=== PATIENT | male | born 1960 | race Caucasian/White ===

== ENCOUNTER 2016-07-10 07:35 | Day surgery (SDC) | payer OTHER ==
--- NOTE | ~2016-07-10 | EGD ---
EGD REPORT [facility] [address] [id number] NAME: DINORAH WEST : [birth year] STATUS : REG [facility]#: [id number] AGE: 55 ADM/REG DATE : 07/10/16 MR#: [id number] REPORT SERV DATE: 07/10/16 DICTATED BY: JACKY CASSIDY DATE: 07/10/16 REPORT STATUS : Draft [facility]: [facility] DATE: 07/10/16 Endoscopy Center Patient Name: Dinorah West Date of : 1960 Attending MD: JACKY CASSIDY MD Procedure Date No Time: 07/10/2016 Procedure: Colonoscopy Indications: Screening for colorectal malignant neoplasm Referring MD: PAYAL MARSHALL Medicines: Propofol per Anesthesia Complications: No immediate complications. Procedure: Pre-Anesthesia Assessment: - ASA Grade Assessment: III - A patient with severe systemic disease. After I obtained informed consent, the scope was passed under direct vision. Throughout the procedure, the patient's blood pressure, pulse, and oxygen saturations were monitored continuously. The CF [id number] was introduced through the anus and advanced to the cecum, identified by appendiceal orifice and ileocecal valve. The colonoscopy was performed without difficulty. The patient tolerated the procedure well. The quality of the bowel preparation was good. Findings: The perianal and digital rectal examinations were normal. The colon (entire examined portion) appeared normal. A sessile polyp was found in the cecum. The polyp was 5 mm in size. The polyp was removed with a hot snare. Resection and retrieval were complete. A sessile polyp was found in the descending colon. The polyp was 4 mm in size. The polyp was removed with a cold snare. Resection and retrieval were complete. Multiple medium-mouthed diverticula were found in the recto-sigmoid colon and in the sigmoid colon. A sessile polyp was found in the recto-sigmoid colon. The polyp was 5 mm in size. The polyp was removed with a hot snare. Resection and retrieval were complete. Non-bleeding internal hemorrhoids were found during retroflexion and were mild, medium-sized and Grade I (internal hemorrhoids that do not prolapse). Impression: - The entire examined colon is normal. - One 5 mm polyp in the cecum. Resected and retrieved. - One 4 mm polyp in the descending colon. Resected and EGD REPORT [address] [place]. [address] NAME: DNIORAH WEST : 58 STATUS : REG [facility] PAT#: [id number] AGE: 55 ADM/REG DATE : 07/10/16 MR#: [id number] REPORT SERV DATE: 07/10/16 DICTATED BY: JACKY CASSIDY DATE: 07/10/16 REPORT STATUS : Draft TRANSCRIBED BY: [employer] DATE: 07/10/16 retrieved. - Diverticulosis in the recto-sigmoid colon and in the sigmoid colon. - One 5 mm polyp at the recto-sigmoid colon. Resected and retrieved. - Non-bleeding internal hemorrhoids. Recommendation: - Patient has a contact number available for emergencies. The signs and symptoms of potential delayed complications were discussed with the patient. Return to normal activities tomorrow. Written discharge instructions were provided to the patient. - Return to previous diet. - Continue present medications. - Await pathology results. - Repeat colonoscopy in 1 to 3 years` for surveillance based on pathology results. - Return to my office as previously scheduled. - Discharge patient to home. Procedure Code(s): --- Professional --- 67360, Colonoscopy, flexible, proximal to splenic flexure; with removal of tumor(s), polyp(s), or other lesion(s) by snare technique Diagnosis Code(s): --- Professional --- K64.0, First degree hemorrhoids K57.30, Diverticulosis of large intestine without perforation or abscess without bleeding D12.7, Benign neoplasm of rectosigmoid junction D12.4, Benign neoplasm of descending colon D12.0, Benign neoplasm of cecum Z12.11, Encounter for screening for malignant neoplasm of colon CPT copyright 2013 [employer]. All rights reserved. The codes documented in this report are preliminary and upon edger machine operator review may be revised to meet current compliance requirements. Jacky Cassidy MD JACKY CASSIDY MD 07/10/2016 10:21 AM This report has been signed electronically. Number of Addenda: 0 EGD REPORT [facility] [address] [id number] NAME: DINORAH WEST : 58 STATUS : REG [facility] [place] PAT#: [id number] AGE: 55 ADM/REG DATE : 07/10/16 MR#: [id number] REPORT SERV DATE: 07/10/16 DICTATED BY: JACKY CASSIDY DATE: 07/10/16 REPORT STATUS : Draft TRANSCRIBED BY: [employer] DATE: 07/10/16 Note Initiated On: 07/10/2016 8:32 AM Scope Withdrawal Time 0 hours 32 minutes 49 seconds [address] [id number]
[~2016-07-10 07:35] MED LIST: BYSTOLIC10 MG PO; CYANO1000T PO; LOTE40 PO
== END 2016-07-10 23:59 | disposition home or self-care (01) ==
LOC: DMU 07:35
PROVIDERS: Internal Medicine Gastroenterology
PROC: 0DBN8ZZ Excision of Sigmoid Colon, Via Natural or Artificial Opening Endoscopic (ICD-10-PCS; 2016-07-10)
PROC: 0DBM8ZZ Excision of Descending Colon, Via Natural or Artificial Opening Endoscopic (ICD-10-PCS; 2016-07-10)
PROC: 0DBH8ZZ Excision of Cecum, Via Natural or Artificial Opening Endoscopic (ICD-10-PCS; principal; 2016-07-10 09:00)
DX: Z12.11 Encounter for screening for malignant neoplasm of colon (principal); D12.0 Benign neoplasm of cecum; D12.4 Benign neoplasm of descending colon; K64.0 First degree hemorrhoids; K57.30 Diverticulosis of large intestine without perforation or abscess without bleeding; K63.5 Polyp of colon; F10.10 Alcohol abuse, uncomplicated; F17.210 Nicotine dependence, cigarettes, uncomplicated; I10 Essential (primary) hypertension; N40.0 Benign prostatic hyperplasia without lower urinary tract symptoms; H91.90 Unspecified hearing loss, unspecified ear; Z97.4 Presence of external hearing-aid; Z87.442 Personal history of urinary calculi; Z79.82 Long term (current) use of aspirin; Z79.899 Other long term (current) drug therapy
CPT/HCPCS: 88305